=== PATIENT | female | born 1995 | race Caucasian/White ===

== ENCOUNTER 2016-07-26 12:27 | Emergency (ER) | payer OTHER ==
[2016-07-26 14:28] VITALS: BP 115/81
== END 2016-07-26 14:28 | disposition home or self-care (01) ==
LOC: ED 12:27
DX: S51.812A Laceration without foreign body of left forearm, initial encounter (principal); S60.221A Contusion of right hand, initial encounter; X36.1XXA Avalanche, landslide, or mudslide, initial encounter; Y93.89 Activity, other specified; Y99.8 Other external cause status; Y92.89 Other specified places as the place of occurrence of the external cause
CPT/HCPCS: 90715; J2001

== ENCOUNTER 2016-07-31 18:33 | Emergency (ER) | payer OTHER ==
[~2016-07-31] VITALS: Ht 165.1 cm; Wt 66.9 kg
[2016-07-31 18:42] VITALS: BP 125/74
== END 2016-07-31 21:40 | disposition left against medical advice (07) ==
LOC: ED 18:33
DX: Z53.21 Procedure and treatment not carried out due to patient leaving prior to being seen by health care provider (principal)

== ENCOUNTER 2016-08-10 15:11 | Emergency (ER) | payer OTHER ==
[~2016-08-10] VITALS: Ht 165.1 cm; Wt 67.7 kg
[2016-08-10 15:35] VITALS: BP 133/56
== END 2016-08-10 15:30 | disposition home or self-care (01) ==
LOC: ED 15:11
DX: S41.112D Laceration without foreign body of left upper arm, subsequent encounter (principal); Y08.89XD Assault by other specified means, subsequent encounter; Y99.8 Other external cause status; Y92.89 Other specified places as the place of occurrence of the external cause

== ENCOUNTER 2017-12-27 22:31 | Emergency (ER) | payer MEDICAID ==
[~2017-12-27] VITALS: Ht 162.6 cm; Wt 60.3 kg
[2017-12-27 22:41] VITALS: Ht 162.6 cm; Wt 60.3 kg
[2017-12-28 00:29] VITALS: BP 123/74
== END 2017-12-28 00:29 | disposition home or self-care (01) ==
LOC: ED 22:31
DX: R10.2 Pelvic and perineal pain (principal); Z03.89 Encounter for observation for other suspected diseases and conditions ruled out

== ENCOUNTER 2018-04-06 01:57 | Emergency (ER) | payer MEDICAID ==
[~2018-04-06] VITALS: Ht 162.6 cm; Wt 58.5 kg
[2018-04-06 02:02] VITALS: BP 116/73; Ht 162.6 cm; Wt 58.5 kg
== END 2018-04-06 04:32 | disposition home or self-care (01) ==
LOC: ED 01:57
DX: R51 Headache (principal); J06.9 Acute upper respiratory infection, unspecified; M79.10 Myalgia, unspecified site; M54.2 Cervicalgia
CPT/HCPCS: J0780; J1200; J1885; J7030

== ENCOUNTER 2018-08-22 05:55 | Emergency (ER) | payer OTHER ==
[~2018-08-22] VITALS: Ht 162.6 cm; Wt 51.3 kg
[2018-08-22 06:15] VITALS: Ht 162.6 cm; Wt 51.3 kg
[2018-08-22 08:50] VITALS: BP 128/71
== END 2018-08-22 08:50 | disposition home or self-care (01) ==
LOC: ED 05:55
DX: N76.4 Abscess of vulva (principal)
CPT/HCPCS: J0561; J0696; J2001

== ENCOUNTER 2018-08-26 03:46 | Emergency (ER) | payer OTHER ==
[~2018-08-26] VITALS: Ht 165.1 cm; Wt 55.8 kg
[2018-08-26 03:52] VITALS: Ht 165.1 cm; Wt 55.8 kg
[2018-08-26 04:51] VITALS: BP 132/91
== END 2018-08-26 04:51 | disposition home or self-care (01) ==
LOC: ED 03:46
DX: N75.1 Abscess of Bartholin's gland (principal)

== ENCOUNTER 2019-03-24 22:24 | Emergency (ER) | payer MEDICAID ==
[~2019-03-24] VITALS: Ht 165.1 cm; Wt 61.7 kg
[2019-03-24 22:32] VITALS: Ht 165.1 cm; Wt 61.7 kg
[2019-03-24 23:45] VITALS: BP 136/93
== END 2019-03-25 00:27 | disposition home or self-care (01) ==
LOC: ED 22:24
DX: N34.2 Other urethritis (principal); N76.0 Acute vaginitis
CPT/HCPCS: 87491; 87591

== ENCOUNTER 2019-06-09 02:29 | Emergency (ER) | payer MEDICAID, SELFPAY ==
[~2019-06-09] VITALS: Ht 165.1 cm; Wt 65.8 kg
[2019-06-09 02:32] VITALS: Ht 165.1 cm; Wt 65.8 kg
[2019-06-10 13:09] VITALS: BP 115/71
== END 2019-06-10 13:09 | disposition left against medical advice (07) ==
LOC: ED 02:29
DX: J06.9 Acute upper respiratory infection, unspecified (principal); J45.909 Unspecified asthma, uncomplicated; Z03.818 Encounter for observation for suspected exposure to other biological agents ruled out

== ENCOUNTER 2019-06-20 06:05 | Emergency (ER) | payer MEDICAID ==
[~2019-06-20] VITALS: Ht 165.1 cm; Wt 64.4 kg
[2019-06-20 06:13] VITALS: Ht 165.1 cm; Wt 64.4 kg
[2019-06-20 07:09] LABS: BASOPHIL % 0.4 % (0-2); PLATELET COUNT 450 x10^3mcL (130-400)
[2019-06-20 07:59] LABS: CARBON DIOXIDE 29.8 mmol/L (21-32); CHLORIDE SERUM 101 mmol/L (98-107); CREATININE SERUM 0.6 mg/dL (0.6-1.0); GFR1 > 60 mL/min; GLUCOSE SERUM 102 mg/dL (74-106); POTASSIUM SERUM 3.8 mmol/L (3.5-5.1); SODIUM SERUM 137 mmol/L (136-145)
[2019-06-20 08:03] LABS: ALKALINE PHOSPHATASE 108 U/L (46-116); ALT/SGPT 18 U/L (14-59); AST/SGOT 16 U/L (15-37); BILIRUBIN TOTAL 0.21 mg/dL (0.20-1.00); TOTAL PROTEIN, SERUM 7.7 g/dL (6.4-8.2); URIC ACID 4.3 mg/dL (2.6-6.0)
[2019-06-20 08:07] LABS: ALBUMIN 3.2 g/dL (3.4-5.0)
[2019-06-20 08:12] LABS: UA SPECIFIC GRAVITY 1.025 (1.005-1.035); microscopic required? YES; urine erythrocyte TRACE (NEGATIVE)
[2019-06-20 09:27] VITALS: BP 139/77
== END 2019-06-20 09:27 | disposition home or self-care (01) ==
LOC: ED 06:05
PROVIDERS: Emergency Medicine
DX: M10.071 Idiopathic gout, right ankle and foot (principal); N39.0 Urinary tract infection, site not specified; J45.909 Unspecified asthma, uncomplicated
CPT/HCPCS: 36415; J7512

== ENCOUNTER 2020-02-18 21:45 | Emergency (ER) | payer MEDICAID ==
[~2020-02-18] VITALS: Ht 165.1 cm; Wt 65.8 kg
[2020-02-18 21:47] VITALS: BP 126/83; Ht 165.1 cm; Wt 65.8 kg
== END 2020-02-18 22:10 | disposition left against medical advice (07) ==
LOC: ED 21:45
DX: Z53.21 Procedure and treatment not carried out due to patient leaving prior to being seen by health care provider (principal)